=== PATIENT | male | born 1960 | race Caucasian/White ===

== ENCOUNTER 2017-03-22 11:29 | Emergency (ER) | payer BC, OTHER ==
[~2017-03-22] VITALS: Ht 182.9 cm; Wt 71.7 kg
[2017-03-22 11:31] VITALS: TEMP 36.3; Ht 182.9 cm; Wt 71.7 kg
[2017-03-22] MEDS ORDERED: CYCLOBENZAPRINE HCL 5 MG TAB PO STA (12:15)
[2017-03-22] MEDS ORDERED: KETOROLAC TROMETHAMINE 60 MG/2 ML VIAL IM STA (12:15)
--- NOTE | 2017-03-22 12:57 | DIAGNOSTIC IMAGING REPORT ---
LUMBAR SPINE 5 VIEWS CLINICAL HISTORY: Low back pain. FINDINGS: 5 views of the lumbar spine are compared to study dated 12/23/2015. The skeletal structures are well mineralized. There is no radiographic evidence of fracture or malalignment. Vertebral body height and alignment are maintained. The transverse and spinous processes are intact. There is no evidence of spondylolysis. Anterior osteophytes are seen throughout. Mild disc space narrowing is seen at L2-L3 and L5-S1. The remaining disc spaces are well-maintained. The visualized bony pelvis appears intact. There is a nonobstructed abdominal bowel gas pattern. IMPRESSION: 1. No acute bony abnormality is seen involving the lumbosacral spine. 2. Mild degenerative change as above. Electronically signed by: Donaldo Jenkins M.D. 03/22/2017 12:56 PM Dictated Date/Time: 03/22/2017 12:55 PM
[2017-03-22] MEDS ORDERED: CYCL10TA6 PO (13:23)
[2017-03-22] MEDS ORDERED: TRAM-10 PO (13:23)
[2017-03-22 13:25] VITALS: BP 142/84; PULSE 78; O2SAT 96
--- NOTE | 2017-03-22 13:25 | EMERGENCY ROOM VISIT NOTE ---
ED Visit Note First contact with patient: 12:02 CHIEF COMPLAINT: Low back pain HISTORY OF PRESENT ILLNESS: This 56-year-old male patient presents to the emergency department ambulatory, complaining of pain in the low back which began on Saturday. He states "I just need some muscle relaxers and pain pills." The patient states the pain began at work. He states "I do not my low back out the other day". He states he works as a cook, and is uncertain that there was any injury. He states it just occurred while at work. He denies carrying heavy objects, twisting and crackly, or bending while working, and states the pain spontaneously began. The pain was gradual in onset, is now constant and worse with movement. He has been to the chiropractor twice this week, and states this afternoon, after going to the chiropractor, he coughed, and the back pain worsened. The patient notes the pain as severe and tight and a 9/10. The patient has taken intermittent Advil, ice, and heat without relief of the pain. The patient denies any loss of control of their bowel or bladder functions. There has been no leg numbness or weakness, and no change in sensation. No nausea or vomiting or abdominal pain. No chest pain or shortness of breath. The patient has not had prior back injuries, but does report a history of "throwing the back out" frequently. No dysuria or increased urinary frequency. REVIEW OF SYSTEMS: A 10 system review of systems was performed with positives and pertinent negatives listed in the history of present illness. All other systems were reviewed and are negative. ALLERGIES: Bee stings, shrimp MEDICATIONS: None PMH: None SOCIAL HISTORY: The patient lives locally with family. He admits to smoking marijuana and using alcohol. He denies tobacco use. PHYSICAL EXAM: VITALS: Vitals are noted on the nurse's note and reviewed by myself. Vital signs stable. GENERAL: This is a 56-year-old white male, in no acute distress, nondiaphoretic , well-developed well-nourished. SKIN: The skin was without rashes, erythema, edema, or bruising. Capillary refill less than 2 seconds. NECK: Supple without nuchal rigidity. No cervical spine tenderness. No paraspinous muscle tenderness. HEART: Regular rate and rhythm without murmurs gallops or rubs. LUNGS: Clear to auscultation bilaterally without wheezes, rales or rhonchi. ABDOMEN: Positive bowel sounds x 4. Normal tympanic percussion. Soft, nontender, without masses or organomegaly. Alcaraz sign negative. MUSCULOSKELETAL: No muscle atrophy, erythema, or edema noted of the back. There is tenderness over the lumbar spinous processes. There is tenderness over the paraspinous muscles bilaterally. There is no tenderness over the thoracic spine or paraspinous muscles. There are muscle spasms present. The patient is slow to move around with maximum tenderness with position changes and sitting upright. Negative straight leg raise test. NEURO: Patient was alert and oriented to person place and time. Normal sensation to light and sharp touch. Deep tendon reflexes 2+ in the lower extremities. Dorsalis pedis pulse 2+ bilaterally. Strength 5/5 and equal in the bilateral lower extremities. RADIOLOGY: LUMBAR SPINE 5 VIEWS CLINICAL HISTORY: Low back pain. FINDINGS: 5 views of the lumbar spine are compared to study dated 12/23/2015. The skeletal structures are well mineralized. There is no radiographic evidence of fracture or malalignment. Vertebral body height and alignment are maintained. The transverse and spinous processes are intact. There is no evidence of spondylolysis. Anterior osteophytes are seen throughout. Mild disc space narrowing is seen at L2-L3 and L5-S1. The remaining disc spaces are well-maintained. The visualized bony pelvis appears intact. There is a nonobstructed abdominal bowel gas pattern. IMPRESSION: 1. No acute bony abnormality is seen involving the lumbosacral spine. 2. Mild degenerative change as above. Electronically signed by: Donaldo Jenkins M.D. 03/22/2017 12:56 PM Dictated Date/Time: 03/22/2017 12:55 PM EMERGENCY DEPARTMENT COURSE: The patient was seen and evaluated as above. His examination is consistent with lumbar strain, however, he reports frequent episodes of severe back pain and has not had updated x-rays since 2016. Lumbar spine x-rays were ordered and reviewed by myself and radiologist. These were significant only for some degenerative change and mild disc space narrowing. The patient was given 60 mg Toradol and 10 mg Flexeril and did note mild to moderate improvement in his symptoms. I did discuss the findings of the x-ray with the patient at bedside and did reevaluate him and his pain. He states he feels ready to go home, and would like some pain medicine and muscle relaxers to get him through the weekend. Discharge instructions were reviewed, and the patient was discharged home in good condition. I attest that I have personally reviewed the patient's current medication list. Patient was found to have normal blood pressure on screening and does not require follow-up. Etiologies such as lumbago, sciatica, cauda equina, epidural abscess, osteomyelitis, fracture, aortic disease, metastatic disease, infection, renal colic, gastrointestinal, as well as others were entertained. DIAGNOSIS: Lumbar strain Current/Historical Medications Scheduled PRN Cyclobenzaprine Hcl (Flexeril), 10 MG PO TID PRN for Muscle Spasms Tramadol (Ultram), 50 MG PO Q4H PRN for Pain Allergies Coded Allergies: BEE STING (Unverified Allergy, Unknown, UNKNOWN, 03/22/17) Unclassified Drugs (Unverified Allergy, Unknown, SHRIMP- UNKNOWN REACTION , 03/22/17) Vital Signs Date Time Temp Pulse Resp B/P (MAP) Pulse Ox O2 Delivery O2 Flow Rate FiO2 03/22/17 13:25 78 20 142/84 96 Room Air 03/22/17 11:31 36.3 64 18 147/90 97 Room Air Medications Administered Medications (Trade) Dose Ordered Sig/Edilberto Route Start Time Stop Time Status Last Admin Dose Admin Ketorolac Tromethamine (Toradol Inj) 60 mg NOW STAT IM 03/22/17 12:15 03/22/17 12:16 DC 03/22/17 12:28 60 MG Cyclobenzaprine HCl (Flexeril Tab) 10 mg NOW STAT PO 03/22/17 12:15 03/22/17 12:16 DC 03/22/17 12:28 10 MG Departure Information Impression Primary Impression: Strain of lumbar region Dispostion Home / Self-Care Condition GOOD Prescriptions Cyclobenzaprine Hcl (FLEXERIL) 10 Mg Tab 10 MG PO TID Y for Muscle Spasms, #15 TAB Prov: Tata Hussein PA-C 03/22/17 Tramadol (Ultram) 50 Mg Tab 50 MG PO Q4H Y for Pain, #6 TAB Prov: Tata Hussein PA-C 03/22/17 Forms HOME CARE DOCUMENTATION FORM, Days off school: 1 Work Instructions, Return To Work: 1 day IMPORTANT VISIT INFORMATION Patient Instructions ED Neck Back Pain General, My [facility] Additional Instructions You have been treated in the Emergency Department for Back Pain. You have been prescribed Tramadol to be used for pain control. This is a narcotic medication. You cannot drive or consume alcohol while on this medicine. This medicine should only be used for pain that cannot be controlled with [id number] pain medicines. You have been prescribed Flexeril (cyclobenzaprine) 1 tab orally, three times per day. Do NOT exceed 30 mg (3 tabs) per day. Take your first dose at bedtime as it can make you drowsy. Always take all medications as prescribed. For pain control, you can use the following [id number]-[id number] medicines (if >12 yo): Ibuprofen(Motrin, Advil) may be used for fever or pain. Use 600mg every six hours as needed. Take with food. Avoid using more than 2400mg in a 24 hour period. Do not use 2400mg per day for more than three consecutive days without physician direction. Prolonged inappropriate use can lead to stomach upset or ulcers. (AND/OR) Acetaminophen(Tylenol) may be used for fever or pain. Use 1000mg every six hours as needed. Avoid using more than 3000mg in a 24 hour period. *You should alternate these medications every 3-4 hours for increased pain control. Take the Tramadol for breakthrough pain. If this is an acute injury, ice can be applied to the area of pain for the first 3 days to help decrease pain and inflammation. After the first 3 days, a heating pad can be used over the area for continued soothing relief. You should schedule a follow-up appointment in 2-3 days with your Primary Care Provider for further evaluation and treatment of your back pain. Return to the Emergency Department if your current symptoms worsen despite treatment course outlined above, or if you develop any of the following symptoms : intractable pain despite aforementioned treatment course, loss of control of your bowel or bladder, numbness or tingling in your groin, or development of a fever. Work Instructions Return To Work: 1 day School Instructions Return To School: 1 day Problem Qualifiers Primary Impression: Strain of lumbar region Encounter type: initial encounter Qualified Codes: S39.012A - Strain of muscle, fascia and tendon of lower back, initial encounter
== END 2017-03-22 13:44 | disposition home or self-care (01) ==
LOC: C.EDB 11:30 → C.EDD 13:44
DX: S39.012A Strain of muscle, fascia and tendon of lower back, initial encounter (principal); X58.XXXA Exposure to other specified factors, initial encounter; Y99.0 Civilian activity done for income or pay; F12.90 Cannabis use, unspecified, uncomplicated